=== PATIENT | female | born 1995 | race Asian ===

== ENCOUNTER 2017-03-09 04:14 | Emergency (ER) | payer BC ==
[2017-03-09 04:28] VITALS: BP 135/108
[2017-03-09] MEDS ORDERED: Sodium Chloride 0.9% 10 ML Syringe FLUSH PRN ×2 (05:03→06:40)
[2017-03-09] MEDS ORDERED: Ondansetron 4 MG/2 ML SDV IVPUSH ONE (05:03)
[2017-03-09] MEDS ORDERED: HYDROmorphone 1 MG/ML Syringe IVPUSH ONE (05:03)
[2017-03-09] MEDS ORDERED: LORazepam 2 MG/ML MDV IVPUSH ONE (05:14)
[2017-03-09] MEDS ORDERED: Sodium Chloride 0.9% 1,000 ML IV SCH (05:15)
[2017-03-09] MEDS ORDERED: Iopamidol 612 MG/ML 100 ML Bottle IV PRN (06:40)
--- NOTE | 2017-03-09 06:43 | EDM.PDOC ---
ED HPI GENERAL MEDICAL PROBLEM - General Chief Complaint: Gastrointestinal Problem Stated Complaint: VOMITING BLOOD Time Seen by Provider: 03/09/17 04:55 Source of Information: Reports: Patient History Limitations: Reports: No Limitations - History of Present Illness INITIAL COMMENTS - FREE TEXT/NARRATIVE: This lady complains of nausea and vomiting. It began about 10 PM last night. After she vomited several times she noticed some blood in it may be about 1 teaspoon. This has happened before. Last night she drank 2 shots of vodka is wondering if that might have something to do with it. The only time she had vomiting before was after ethanol poisoning. She's not really complaining of abdominal pain just the persistent nausea. She denies any fever or chills. She mentioned she does have a history of irritable bowel syndrome Middle Abdomen Pain Score (Numeric/FACES): 8 - Related Data Allergies Allergy/AdvReac Type Severity Reaction Status Date / Time No Known Allergies Allergy Verified 03/09/17 04:39 Home Meds: Home Meds NK [No Known Home Meds] 03/09/17 [History] Past Medical History Gastrointestinal History: Reports: Irritable Bowel Syndrome - Past Surgical History HEENT Surgical History: Reports: Eye Surgery Social & Family History - Tobacco Use Smoking Status *Q: Current Every Day Smoker Years of Tobacco use: 9 Packs/Tins Daily: 0.5 - Caffeine Use Caffeine Use: Reports: Coffee, Tea - Recreational Drug Use Recreational Drug Use: Yes Drug Use in Last 12 Months: Yes Recreational Drug Type: Reports: Marijuana/Hashish Recreational Drug Use Frequency: Rarely ED ROS GENERAL - Review of Systems Review Of Systems: See Below Constitutional: Reports: No Symptoms HEENT: Reports: No Symptoms Respiratory: Reports: No Symptoms Cardiovascular: Reports: No Symptoms Endocrine: Reports: No Symptoms GI/Abdominal: Reports: Vomiting. Denies: Abdominal Pain : Reports: No Symptoms Musculoskeletal: Reports: No Symptoms Skin: Reports: No Symptoms ED EXAM, GI/ABD - Physical Exam Exam: See Below Exam Limited By: No Limitations (No) General Appearance: Alert, Moderate Distress, Obese Eyes: Bilateral: Normal Appearance Throat/Mouth: Normal Inspection Neck: Normal Inspection Respiratory/Chest: Lungs Clear Cardiovascular: Regular Rate, Rhythm, No Murmur GI/Abdominal Exam: Tender (Moderate to severe tenderness mostly in the left lower quadrant. Less severe tenderness in all other quadrants), Abnormal Bowel Sounds (Hypoactive) Back Exam: Normal Inspection Extremities: Normal Inspection Neurological: Alert, Oriented Psychiatric: Normal Affect Skin Exam: Warm, Dry Course - Vital Signs Last Recorded V/S: Last Vital Signs Temp 36.9 C 03/09/17 04:25 Pulse 88 03/09/17 04:25 Resp 20 03/09/17 04:25 BP 135/108 H 03/09/17 04:25 Pulse Ox 98 03/09/17 04:25 - Orders/Labs/Meds Orders: Active Orders 24 hr Category Date Time Status Abdomen Pelvis w Cont [CT] Stat Exams 03/09/17 06:34 Taken Iopamidol [Isovue-300 (61%)] Med 03/09/17 06:40 Active 100 ml IV . DIRECTED PRN Sodium Chloride 0.9% [Normal Saline] 1,000 ml Med 03/09/17 05:15 Active IV ASDIRECTED Sodium Chloride 0.9% [Normal Saline] 71 ml Med 03/09/17 06:45 Active IV ASDIRECTED Sodium Chloride 0.9% [Saline Flush] Med 03/09/17 05:03 Active 10 ml FLUSH ASDIRECTED PRN Sodium Chloride 0.9% [Saline Flush] Med 03/09/17 06:40 Active 10 ml FLUSH ONETIME PRN Saline Lock Insert [OM.PC] Urgent Oth 03/09/17 05:02 Ordered Medication Orders Sodium Chloride (Normal Saline) 1,000 mls @ 999 mls/hr IV ASDIRECTED [facility] Last Admin: 03/09/17 05:14 Dose: 999 mls/hr Sodium Chloride (Normal Saline) 71 mls @ 3 mls/sec IV ASDIRECTED [facility] Last Admin: 03/09/17 06:49 Dose: 3 mls/sec Iopamidol (Isovue-300 (61%)) 100 ml IV . DIRECTED PRN PRN Reason: RADIOLOGY EXAM Stop: 03/10/17 06:41 Last Admin: 03/09/17 06:49 Dose: 100 ml Sodium Chloride (Saline Flush) 10 ml FLUSH ASDIRECTED PRN PRN Reason: Keep Vein Open Last Admin: 03/09/17 05:14 Dose: 10 ml Sodium Chloride (Saline Flush) 10 ml FLUSH ONETIME PRN PRN Reason: per radiology protocol Last Admin: 03/09/17 06:49 Dose: 10 ml Labs: Laboratory Tests 03/09/17 03/09/17 03/09/17 Range/Units 05:21 05:21 05:21 WBC 14.3 H (4.5-11.0) K/uL RBC 5.21 (3.30-5.50) M/uL Hgb 15.2 H (12.0-15.0) g/dL Hct 43.4 (36.0-48.0) % MCV 83 (80-98) fL MCH 29 (27-31) pg MCHC 35 (32-36) % Plt Count 413 H (150-400) K/uL Neut % (Auto) 82 H (36-66) % Lymph % (Auto) 12 L (24-44) % [place] % (Auto) 5 (2-6) % Eos % (Auto) 1 L (2-4) % Baso % (Auto) 1 (0-1) % Sodium 140 (140-148) mmol/L Potassium 3.8 (3.6-5.2) mmol/L Chloride 102 (100-108) mmol/L Carbon Dioxide 27 (21-32) mmol/L Anion Gap 11.3 (5.0-14.0) mmol/L BUN 8 (7-18) mg/dL Creatinine 0.8 (0.6-1.0) mg/dL Est Cr Clr Drug Dosing 102.39 mL/min Estimated GFR (MDRD) > 60 (>60) Glucose 100 (74-106) mg/dL Calcium 9.3 (8.5-10.1) mg/dL Total Bilirubin 0.7 (0.2-1.0) mg/dL AST 23 (15-37) U/L ALT 40 (12-78) U/L Alkaline Phosphatase 54 (46-116) U/L Total Protein 9.0 H (6.4-8.2) g/dL Albumin 4.5 (3.4-5.0) g/dL Globulin 4.5 H (2.3-3.5) g/dL Albumin/Globulin Ratio 1.0 L (1.2-2.2) Urine Color Urine Appearance Urine pH (4.5-8.0) Ur Specific [place] (1.008-1.030) Urine Protein (NEGATIVE) mg/dL Urine Glucose (UA) (NEGATIVE) mg/dL Urine Ketones (NEGATIVE) mg/dL Urine Occult Blood (NEGATIVE) Urine Nitrite (NEGATIVE) Urine Bilirubin (NEGATIVE) Urine Urobilinogen (NORMAL) mg/dL Ur Leukocyte Esterase (NEGATIVE) Urine RBC (0-5) Urine WBC (0-5) Ur Epithelial Cells Amorphous Sediment Urine Bacteria Urine Mucus Urine HCG, Qual Negative 03/09/17 Range/Units 05:21 WBC (4.5-11.0) K/uL RBC (3.30-5.50) M/uL Hgb (12.0-15.0) g/dL Hct (36.0-48.0) % MCV (80-98) fL MCH (27-31) pg MCHC (32-36) % Plt Count (150-400) K/uL Neut % (Auto) (36-66) % Lymph % (Auto) (24-44) % Ware % (Auto) (2-6) % Eos % (Auto) (2-4) % Baso % (Auto) (0-1) % Sodium (140-148) mmol/L Potassium (3.6-5.2) mmol/L Chloride (100-108) mmol/L Carbon Dioxide (21-32) mmol/L Anion Gap (5.0-14.0) mmol/L BUN (7-18) mg/dL Creatinine (0.6-1.0) mg/dL Est Cr Clr Drug Dosing mL/min Estimated GFR (MDRD) (>60) Glucose (74-106) mg/dL Calcium (8.5-10.1) mg/dL Total Bilirubin (0.2-1.0) mg/dL AST (15-37) U/L ALT (12-78) U/L Alkaline Phosphatase (46-116) U/L Total Protein (6.4-8.2) g/dL Albumin (3.4-5.0) g/dL Globulin (2.3-3.5) g/dL Albumin/Globulin Ratio (1.2-2.2) Urine Color Yellow Urine Appearance Clear Urine pH 9.0 H (4.5-8.0) Ur Specific [place] 1.015 (1.008-1.030) Urine Protein Negative (NEGATIVE) mg/dL Urine Glucose (UA) Normal (NEGATIVE) mg/dL Urine Ketones 15 H (NEGATIVE) mg/dL Urine Occult Blood Negative (NEGATIVE) Urine Nitrite Negative (NEGATIVE) Urine Bilirubin Negative (NEGATIVE) Urine Urobilinogen Normal (NORMAL) mg/dL Ur Leukocyte Esterase Negative (NEGATIVE) Urine RBC 0-5 (0-5) Urine WBC 0-5 (0-5) Ur Epithelial Cells Few Amorphous Sediment Not seen Urine Bacteria Not seen Urine Mucus Not seen Urine HCG, Qual Meds: Medications Generic Name Dose Route Start Last Admin Trade Name Ailyn PRN Reason Stop Dose Admin Sodium Chloride 1,000 mls @ 999 mls/hr 03/09/17 05:15 03/09/17 05:14 Normal Saline IV 999 mls/hr ASDIRECTED [facility] Administration Sodium Chloride 71 mls @ 3 mls/sec 03/09/17 06:45 03/09/17 06:49 Normal Saline IV 3 mls/sec ASDIRECTED [facility] Administration Iopamidol 100 ml 03/09/17 06:40 03/09/17 06:49 Isovue-300 (61%) IV 03/10/17 06:41 100 ml . DIRECTED PRN Administration RADIOLOGY EXAM Sodium Chloride 10 ml 03/09/17 05:03 03/09/17 05:14 Saline Flush FLUSH 10 ml ASDIRECTED PRN Administration Keep Vein Open Sodium Chloride 10 ml 03/09/17 06:40 03/09/17 06:49 Saline Flush FLUSH 10 ml ONETIME PRN Administration per radiology protocol Discontinued Medications Generic Name Dose Route Start Last Admin Trade Name Ailyn PRN Reason Stop Dose Admin Hydromorphone HCl 1 mg 03/09/17 05:03 03/09/17 05:44 Dilaudid IVPUSH 03/09/17 05:04 Not Given ONETIME ONE Lorazepam 1 mg 03/09/17 05:14 03/09/17 05:22 Ativan IVPUSH 03/09/17 05:15 1 mg ONETIME ONE Administration Ondansetron HCl 4 mg 03/09/17 05:03 03/09/17 05:12 Zofran IVPUSH 03/09/17 05:04 4 mg ONETIME ONE Administration - Re-Assessments/Exams Free Text/Narrative Re-Assessment/Exam: 03/09/17 06:40 This patient received Zofran 4 mg IV and normal saline 1 L IV. She declined any medications for pain but requested something for anxiety. She received Ativan 1 mg. After 1 L of IV normal saline and 4 mg Zofran the patient's nausea is gone. She was reexamined then and still has markedly tenderness in the left lower quadrant. An abdominal CT was ordered 03/09/17 06:43 03/09/17 07:33abdominal CT showed no evidence of any acute intra-abdominal process. Departure - Departure Time of Disposition: 07:34 Disposition: Home, Self-Care 01 Condition: Fair Clinical Impression: Abdominal pain - Discharge Information Forms: ED Department Discharge Additional Instructions: The CT scan was negative. You may be suffering from gastroenteritis probably of viral stomach flu. If you have more nausea try using the Zofran or ondansetron. Displaced one or 2 tablets under your tongue and let them dissolve. Don't try eating any solid foods for the next 24 hours just a clear liquid diet. If you feel like you're getting worse than it or see your Dr. or return to the ER. - My Orders Last 24 Hours: My Active Orders 03/09/17 05:02 Saline Lock Insert [OM.PC] Urgent 03/09/17 05:03 Sodium Chloride 0.9% [Saline Flush] 10 ml FLUSH ASDIRECTED PRN 03/09/17 05:15 Sodium Chloride 0.9% [Normal Saline] 1,000 ml IV ASDIRECTED 03/09/17 06:34 Abdomen Pelvis w Cont [CT] Stat 03/09/17 06:40 Iopamidol [Isovue-300 (61%)] 100 ml IV . DIRECTED PRN Sodium Chloride 0.9% [Saline Flush] 10 ml FLUSH ONETIME PRN 03/09/17 06:45 Sodium Chloride 0.9% [Normal Saline] 71 ml IV ASDIRECTED - Assessment/Plan Last 24 Hours: My Active Orders 03/09/17 05:02 Saline Lock Insert [OM.PC] Urgent 03/09/17 05:03 Sodium Chloride 0.9% [Saline Flush] 10 ml FLUSH ASDIRECTED PRN 03/09/17 05:15 Sodium Chloride 0.9% [Normal Saline] 1,000 ml IV ASDIRECTED 03/09/17 06:34 Abdomen Pelvis w Cont [CT] Stat 03/09/17 06:40 Iopamidol [Isovue-300 (61%)] 100 ml IV . DIRECTED PRN Sodium Chloride 0.9% [Saline Flush] 10 ml FLUSH ONETIME PRN 03/09/17 06:45 Sodium Chloride 0.9% [Normal Saline] 71 ml IV ASDIRECTED
[2017-03-09] MEDS ORDERED: Sodium Chloride 0.9% 71 ML IV SCH (06:45)
== END 2017-03-09 07:40 | disposition home or self-care (01) ==
LOC: JP.ED 04:14
DX: R10.9 Unspecified abdominal pain (principal); R11.2 Nausea with vomiting, unspecified; F17.210 Nicotine dependence, cigarettes, uncomplicated; Z98.890 Other specified postprocedural states
CPT/HCPCS: 36415; 74177; 80053; 81001; 81025; 85025; 96374; 96375; 99284; J2060; J2405; J7030; J7040; J7050; Q9967

== ENCOUNTER 2017-03-23 07:05 | Day surgery (SDC) | payer BC ==
[2017-03-23] MEDS ORDERED: Midazolam 1 MG/ML 2 ML SDV ONE (07:24)
[2017-03-23] MEDS ORDERED: fentaNYL 100 MCG/2 ML SDV ONE (07:24)
[2017-03-23] MEDS ORDERED: Propofol 200 MG/20 ML SDV ONE (07:24)
[2017-03-23] MEDS ORDERED: Sodium Chloride 0.9% 1,000 ML IV SCH (07:45)
[2017-03-23 10:22] VITALS: BP 118/73
--- NOTE | 2017-03-23 14:58 | OR ---
DATE OF PROCEDURE: 03/23/2017 PROCEDURE: Esophagogastroduodenoscopy. PREOPERATIVE DIAGNOSIS: Gastrointestinal bleeding. POSTOPERATIVE DIAGNOSIS: Gastrointestinal bleeding. FINDINGS: Inflammation of the GE junction consistent with reflux disease (biopsied using cold biopsy forceps x6). COMPLICATIONS: None. 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 ANESTHESIA: MAC. RISKS: Risks, benefits, alternatives, limitations including, but not limited to infection, bleeding, and perforation. The patient understands these risks and wished to proceed. PROCEDURE IN DETAIL: The patient was placed in left lateral decubitus position. EGD scope was introduced and advanced atraumatically to the second part of the duodenum. No evidence of duodenitis. On retroflex, there was no hiatal hernia. No gastritis. No ulceration. GE junction was biopsied x6 using cold biopsy forceps. The patient showed minimal inflammation consistent with reflux disease. The esophagus was normal. The patient tolerated the procedure well. Steve Kaye MD /[id number]
== END 2017-03-23 10:38 | disposition home or self-care (01) ==
LOC: JP.SDS 07:05
PROVIDERS: ATTEND Surgery
DX: K21.0 Gastro-esophageal reflux disease with esophagitis (principal); F32.9 Major depressive disorder, single episode, unspecified; E66.9 Obesity, unspecified; F17.210 Nicotine dependence, cigarettes, uncomplicated
CPT/HCPCS: 43239; J2250; J2704; J3010; J7040; 88305

== ENCOUNTER 2017-07-10 21:28 | Emergency (ER) | payer BC ==
[2017-07-10] MEDS ORDERED: LORazepam 2 MG/ML MDV IVPUSH ONE (22:07)
[2017-07-10] MEDS ORDERED: Sodium Chloride 0.9% 10 ML Syringe FLUSH PRN (22:07)
[2017-07-10] MEDS ORDERED: Ketorolac 30 MG/ML SDV IVPUSH ONE (22:07)
[2017-07-10] MEDS ORDERED: Ondansetron 4 MG/2 ML SDV IVPUSH ONE (22:08)
--- NOTE | 2017-07-10 22:14 | EDM.PDOC ---
ED HPI GENERAL MEDICAL PROBLEM - General Chief Complaint: Abdominal Pain Stated Complaint: ABDOMINAL PAIN Time Seen by Provider: 07/10/17 21:52 Source of Information: Reports: Patient, Old Records, RN Notes Reviewed History Limitations: Reports: No Limitations - History of Present Illness INITIAL COMMENTS - FREE TEXT/NARRATIVE: 53 Accompanied by Chief complaint Abdominal pain History of present illness 22-year-old female with history of anxiety and bipolar disorder Also history of dyspepsia/gastritis/upper GI bleed in February of this year on omeprazole. Also gets frequent headaches for which she takes ibuprofen as needed 3 PM today gradual onset of generalized abdominal pain with radiation to the sides and back, waxing and waning. Associated with nausea but no emesis. She tried to induce vomiting but this also was unsuccessful. No urinary symptoms On arrival she had 2 episodes of watery diarrhea within a few minutes, no change in her pain. Feels worse laying down. Did it assemblage 11 AM and at 7 PM, eating made the pain worse. She became quite anxious, states that she has tingling in her face in her fingertips and feet, states it's probably because she's hyperventilating, states she is a very anxious person. [place] chilled at home was unaware of any fever. No ear nose and throat symptoms No headache although she feels lightheaded. 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 No abdominal surgery previously Never Abdominal Pain Score (Numeric/FACES): 10 - Related Data Allergies Allergy/AdvReac Type Severity Reaction Status Date / Time No Known Allergies Allergy Verified 03/23/17 07:30 Home Meds: Home Meds Cetirizine [ZyrTEC] 10 mg PO DAILY 03/21/17 [History] Loratadine [Claritin] 10 mg PO DAILY PRN 03/21/17 [History] Omeprazole 20 mg PO DAILY 03/21/17 [History] Ibuprofen 400 mg PO Q8H PRN 03/23/17 [History] Ondansetron [Ondansetron ODT] 4 mg PO Q6H PRN #6 tab.rapdis 07/11/17 [Rx] Past Medical History Cardiovascular History: Reports: None Respiratory History: Reports: None Gastrointestinal History: Reports: GERD, Irritable Bowel Syndrome Genitourinary History: Reports: None 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 Musculoskeletal History: Reports: None Neurological History: Reports: None Psychiatric History: Reports: Anxiety, Bipolar, PTSD Endocrine/Metabolic History: Reports: None Hematologic History: Reports: None Immunologic History: Reports: None Oncologic (Cancer) History: Reports: None Dermatologic History: Reports: None - Infectious Disease History Infectious Disease History: Reports: None - Past Surgical History Head Surgeries/Procedures: Reports: None HEENT Surgical History: Reports: Eye Surgery, LASIK Cardiovascular Surgical History: Reports: None GI Surgical History: Reports: None Social & Family History - Family History Family Medical History: Noncontributory Cardiac: Reports: Prior Cardiac Arrest - Tobacco Use Smoking Status *Q: Former Smoker Years of Tobacco use: 10 Packs/Tins Daily: 1 Used Tobacco, but Quit: No Second Hand Smoke Exposure: No - Caffeine Use Caffeine Use: Reports: Coffee - Recreational Drug Use Recreational Drug Use: Yes Drug Use in Last 12 Months: Yes Recreational Drug Type: Reports: Marijuana/Hashish Recreational Drug Use Frequency: Daily ED ROS GENERAL - Review of Systems Review Of Systems: See Below Constitutional: Reports: Chills, Decreased Appetite HEENT: Reports: No Symptoms Respiratory: Reports: Shortness of Breath Cardiovascular: Reports: Lightheadedness. Denies: Chest Pain, Palpitations GI/Abdominal: Reports: Abdominal Pain, Diarrhea, Decreased Appetite, Nausea. Denies: Constipation, Stool Incontinence, Vomiting : Reports: No Symptoms Musculoskeletal: Reports: No Symptoms Skin: Reports: No Symptoms Neurological: Reports: Numbness (See history of present illness), Tremors, Difficulty Walking. Denies: Headache, Syncope, Change in Speech, Gait Disturbance Psychiatric: Reports: Anxiety. Denies: Confusion Immunologic: Reports: No Symptoms ED EXAM, GI/ABD - Physical Exam Exam: See Below Exam Limited By: No Limitations General Appearance: Alert, Anxious, Moderate Distress, Other (TearfulLow-grade fever 100.8 and moderate tachycardia rate 112, She is also hyperventilating rate 24, color normal) Eyes: Bilateral: Normal Appearance Ears: Normal External Exam, Hearing Grossly Normal Nose: Normal Inspection Throat/Mouth: Normal Oropharynx, Normal Voice, Other (Dry tongue) Head: Atraumatic Neck: Normal Inspection, Supple, Non-Tender Respiratory/Chest: No Respiratory Distress, Lungs Clear, Normal Breath Sounds, No Accessory Muscle Use Cardiovascular: Regular Rate, Rhythm, No Murmur, Tachycardia GI/Abdominal Exam: Normal Bowel Sounds, Soft, No Distention, Tender (Diffuse with no localization). No: Guarding, Rigid, Rebound Back Exam: Normal Inspection. No: CVA Tenderness (R), CVA Tenderness (L) Extremities: Normal Inspection, Non-Tender Neurological: Alert, No Motor/Sensory Deficits Psychiatric: Anxious, Tearful Skin Exam: Warm, Dry, Intact, Normal Color, No Rash Course - Vital Signs Last Recorded V/S: Last Vital Signs Temp 38.4 C H 07/10/17 21:36 Pulse 98 07/10/17 22:54 Resp 16 07/10/17 22:54 BP 140/88 07/10/17 22:54 Pulse Ox 97 07/10/17 22:54 - Orders/Labs/Meds Orders: Active Orders 24 hr Category Date Time Status Peripheral IV Care [RC] . DIRECTED Care 07/10/17 22:07 Active Abdomen Pelvis w Cont [CT] Stat Exams 07/10/17 23:13 Taken Sodium Chloride 0.9% [Normal Saline] 1,000 ml Med 07/10/17 22:15 Active IV ASDIRECTED Sodium Chloride 0.9% [Normal Saline] 100 ml Med 07/10/17 23:30 Active IV ASDIRECTED Sodium Chloride 0.9% [Saline Flush] Med 07/10/17 22:07 Active 10 ml FLUSH ASDIRECTED PRN Peripheral IV Insertion Adult [OM.PC] Routine Oth 07/10/17 22:06 Ordered Medication Orders Sodium Chloride (Normal Saline) 1,000 mls @ 250 mls/hr IV ASDIRECTED [facility] Last Admin: 07/10/17 22:53 Dose: 250 mls/hr Sodium Chloride (Normal Saline) 100 mls @ 3 mls/sec IV ASDIRECTED [facility] Last Admin: 07/10/17 23:41 Dose: 3 mls/sec Sodium Chloride (Saline Flush) 10 ml FLUSH ASDIRECTED PRN PRN Reason: Keep Vein Open Last Admin: 07/10/17 22:51 Dose: 10 ml Labs: Laboratory Tests 07/10/17 07/10/17 07/10/17 Range/Units 22:18 22:18 22:27 WBC 15.9 H (4.5-11.0) K/uL RBC 4.76 (3.30-5.50) M/uL Hgb 13.3 (12.0-15.0) g/dL Hct 39.5 (36.0-48.0) % MCV 83 (80-98) fL MCH 28 (27-31) pg MCHC 34 (32-36) % Plt Count 302 (150-400) K/uL Sodium 137 L (140-148) mmol/L Potassium 3.3 L (3.6-5.2) mmol/L Chloride 102 (100-108) mmol/L Carbon Dioxide 22 (21-32) mmol/L Anion Gap 16.3 H (5.0-14.0) mmol/L BUN 9 (7-18) mg/dL Creatinine 0.7 (0.6-1.0) mg/dL Est Cr Clr Drug Dosing 116.01 mL/min Estimated GFR (MDRD) > 60 (>60) Glucose 123 H (74-106) mg/dL Calcium 9.1 (8.5-10.1) mg/dL Total Bilirubin 0.6 (0.2-1.0) mg/dL AST 16 (15-37) U/L ALT 34 (12-78) U/L Alkaline Phosphatase 53 (46-116) U/L Total Protein 7.4 (6.4-8.2) g/dL Albumin 3.8 (3.4-5.0) g/dL Globulin 3.6 H (2.3-3.5) g/dL Albumin/Globulin Ratio 1.1 L (1.2-2.2) Lipase 123 (73-393) U/L Urine Color Yellow Urine Appearance Clear Urine pH 9.0 H (4.5-8.0) Ur Specific [place] 1.015 (1.008-1.030) Urine Protein Negative (NEGATIVE) mg/dL Urine Glucose (UA) Normal (NEGATIVE) mg/dL Urine Ketones 15 H (NEGATIVE) mg/dL Urine Occult Blood Negative (NEGATIVE) Urine Nitrite Negative (NEGATIVE) Urine Bilirubin Negative (NEGATIVE) Urine Urobilinogen Normal (NORMAL) mg/dL Ur Leukocyte Esterase Negative (NEGATIVE) Urine RBC 0-5 (0-5) Urine WBC 0-5 (0-5) Ur Epithelial Cells Moderate Amorphous Sediment Few Urine Bacteria Moderate Urine Mucus Not seen Urine HCG, Qual 07/10/17 Range/Units 22:27 WBC (4.5-11.0) K/uL RBC (3.30-5.50) M/uL Hgb (12.0-15.0) g/dL Hct (36.0-48.0) % MCV (80-98) fL MCH (27-31) pg MCHC (32-36) % Plt Count (150-400) K/uL Sodium (140-148) mmol/L Potassium (3.6-5.2) mmol/L Chloride (100-108) mmol/L Carbon Dioxide (21-32) mmol/L Anion Gap (5.0-14.0) mmol/L BUN (7-18) mg/dL Creatinine (0.6-1.0) mg/dL Est Cr Clr Drug Dosing mL/min Estimated GFR (MDRD) (>60) Glucose (74-106) mg/dL Calcium (8.5-10.1) mg/dL Total Bilirubin (0.2-1.0) mg/dL AST (15-37) U/L ALT (12-78) U/L Alkaline Phosphatase (46-116) U/L Total Protein (6.4-8.2) g/dL Albumin (3.4-5.0) g/dL Globulin (2.3-3.5) g/dL Albumin/Globulin Ratio (1.2-2.2) Lipase (73-393) U/L Urine Color Urine Appearance Urine pH (4.5-8.0) Ur Specific [place] (1.008-1.030) Urine Protein (NEGATIVE) mg/dL Urine Glucose (UA) (NEGATIVE) mg/dL Urine Ketones (NEGATIVE) mg/dL Urine Occult Blood (NEGATIVE) Urine Nitrite (NEGATIVE) Urine Bilirubin (NEGATIVE) Urine Urobilinogen (NORMAL) mg/dL Ur Leukocyte Esterase (NEGATIVE) Urine RBC (0-5) Urine WBC (0-5) Ur Epithelial Cells Amorphous Sediment Urine Bacteria Urine Mucus Urine HCG, Qual Negative Meds: Medications Generic Name Dose Route Start Last Admin Trade Name Freq PRN Reason Stop Dose Admin Sodium Chloride 1,000 mls @ 250 mls/hr 07/10/17 22:15 07/10/17 22:53 Normal Saline IV 250 mls/hr ASDIRECTED ROSAMARIA Administration Sodium Chloride 100 mls @ 3 mls/sec 07/10/17 23:30 07/10/17 23:41 Normal Saline IV 3 mls/sec ASDIRECTED ROSAM[facility]IA Administration Sodium Chloride 10 ml 07/10/17 22:07 07/10/17 22:51 Saline Flush FLUSH 10 ml ASDIRECTED PRN Administration Keep Vein Open Discontinued Medications Generic Name Dose Route Start Last Admin Trade Name Ailyn PRN Reason Stop Dose Admin Iopamidol 124 ml 07/10/17 23:30 07/10/17 23:41 Isovue-300 (61%) IV 150 ml . DIRECTED ROSAMARIA Administration Ketorolac Tromethamine 15 mg 07/10/17 22:07 07/10/17 22:37 Toradol IVPUSH 07/10/17 22:08 15 mg ONETIME ONE Administration Lorazepam 1 mg 07/10/17 22:07 07/10/17 22:41 Ativan IVPUSH 07/10/17 22:08 1 mg ONETIME ONE Administration Ondansetron HCl 4 mg 07/10/17 22:08 07/10/17 22:39 Zofran IVPUSH 07/10/17 22:09 4 mg ONETIME ONE Administration - Re-Assessments/Exams Free Text/Narrative Re-Assessment/Exam: 07/10/17 22:16 22-year-old female with generalized abdominal pain gradual onset 3 PM associated with low-grade fever and diarrhea, and anxiety including hyperventilation and paresthesias. Differential diagnosis includes gastritis, early appendicitis, cholecystitis among others Labs ordered Intravenous saline, ondansetron 4 mg, ketorolac 15 mg and lorazepam 1 mg. 07/10/17 23:14 23.10 some improvement in her discomfort, feels more numb and feel sedated, deftly more relaxed. Abdominal exam shows diffuse tenderness possibly focal tenderness in the right lower quadrant CT scan abdomen pelvis with contrast recommended. Labs show elevated white count 15.9 glucose 123 low sodium at 137 and potassium of 3.3 anion gap increased 16.3 Hepatic profile lipase urinalysis are normal and urine test negative 07/11/17 00:38 Improve with the above treatment CT scan shows inflammation of the terminal ileum and distal jejunum consistent with gastroenteritis but could also be early inflammatory bowel disease. However her history is more consistent with infection It's important that she get rechecked if she doesn't improve within a few days Note for missing work tomorrow Departure - Departure Time of Disposition: 00:39 Disposition: Home, Self-Care 01 Condition: Good Clinical Impression: Gastroenteritis - Discharge Information Instructions: Viral Gastroenteritis, Adult, [id number] Referrals: Shira Hart RN [Primary Care Provider] - Forms: ED Department Discharge, ED Return to Work/School Form Additional Instructions: rest at home until your improved at least 24 hours. Fluids frequently Ondansetron has been prescribed for nausea as needed Get rechecked if you develop a very high fever, have recurrent vomiting, are unable to manage at home, or if your symptoms are lasting more than 5-6 days - My Orders Last 24 Hours: My Active Orders 07/10/17 22:06 Peripheral IV Insertion Adult [OM.PC] Routine 07/10/17 22:07 Peripheral IV Care [RC] . DIRECTED Sodium Chloride 0.9% [Saline Flush] 10 ml FLUSH ASDIRECTED PRN 07/10/17 22:15 Sodium Chloride 0.9% [Normal Saline] 1,000 ml IV ASDIRECTED 07/10/17 23:13 Abdomen Pelvis w Cont [CT] Stat 07/10/17 23:30 Sodium Chloride 0.9% [Normal Saline] 100 ml IV ASDIRECTED - Assessment/Plan Last 24 Hours: My Active Orders 07/10/17 22:06 Peripheral IV Insertion Adult [OM.PC] Routine 07/10/17 22:07 Peripheral IV Care [RC] . DIRECTED Sodium Chloride 0.9% [Saline Flush] 10 ml FLUSH ASDIRECTED PRN 07/10/17 22:15 Sodium Chloride 0.9% [Normal Saline] 1,000 ml IV ASDIRECTED 07/10/17 23:13 Abdomen Pelvis w Cont [CT] Stat 07/10/17 23:30 Sodium Chloride 0.9% [Normal Saline] 100 ml IV ASDIRECTED
[2017-07-10] MEDS ORDERED: Sodium Chloride 0.9% 1,000 ML IV SCH (22:15)
[2017-07-10 22:54] VITALS: BP 140/88
[2017-07-10] MEDS ORDERED: Haloperidol Lactate 5 MG/ML SDV IM ONE (23:26)
[2017-07-10] MEDS ORDERED: diphenhydrAMINE 50 MG/ML SDV IM ONE (23:26)
[2017-07-10] MEDS ORDERED: Midazolam 1 MG/ML 5 ML SDV IM ONE (23:27)
[2017-07-10] MEDS ORDERED: Iopamidol 612 MG/ML 150 ML Bottle IV SCH (23:30)
[2017-07-10] MEDS ORDERED: Sodium Chloride 0.9% 100 ML IV SCH (23:30)
== END 2017-07-11 01:18 | disposition home or self-care (01) ==
LOC: JP.ED 21:28
DX: K52.9 Noninfective gastroenteritis and colitis, unspecified (principal); K21.9 Gastro-esophageal reflux disease without esophagitis; Z87.891 Personal history of nicotine dependence; Z79.899 Other long term (current) drug therapy
CPT/HCPCS: 36415; 74177; 80053; 81001; 81025; 83690; 85027; 96361; 96374; 96375; 99284; J1885; J2060; J2405; J7030; J7040; J7050

== ENCOUNTER 2017-08-15 20:31 | Emergency (ER) | payer SELFPAY ==
[2017-08-15 20:41] VITALS: BP 145/100
--- NOTE | 2017-08-15 21:38 | EDM.PDOC ---
ED HPI GENERAL MEDICAL PROBLEM - General Chief Complaint: ENT Problem Stated Complaint: POSITIVE STREP TODAY - UNABLE TO SWALLOW / PAINFUL Time Seen by Provider: 08/15/17 21:18 Source of Information: Reports: Patient, RN Notes Reviewed History Limitations: Reports: No Limitations - History of Present Illness INITIAL COMMENTS - FREE TEXT/NARRATIVE: Here with her Chief complaint Painful swallowing History of present illness 22-year-old female was seen in the clinic earlier today because she started developing a sore throat at work. 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 It felt like she was unable to swallow any saliva and was having great deal of difficulty eating or even taking her prescription, she was prescribed oral cephalexin, she did take 1 dose. She took oral naproxen for tablets and for pain has improved a bit she's not spitting up her saliva any longer. She reports that she had a very severe strep throat several years ago when she was in [place] developed tendinitis had to be hospitalized. No fever today, no cough, does feel a bit lightheaded - Related Data Allergies Allergy/AdvReac Type Severity Reaction Status Date / Time No Known Allergies Allergy Verified 03/23/17 07:30 Home Meds: Home Meds Cetirizine [ZyrTEC] 10 mg PO DAILY 03/21/17 [History] Loratadine [Claritin] 10 mg PO DAILY PRN 03/21/17 [History] Omeprazole 20 mg PO DAILY 03/21/17 [History] Ibuprofen 400 mg PO Q8H PRN 03/23/17 [History] Acetaminophen with Codeine [Acetaminophen-Codeine Elixir] 10 - 20 ml PO Q4H PRN #120 ml 08/15/17 [Rx] Amoxicillin 500 mg PO BID #150 ml 08/15/17 [Rx] Cephalexin [IJD: Cephalexin] 1,000 mg PO BID 08/15/17 [History] Past Medical History HEENT History: Reports: Allergic Rhinitis Cardiovascular History: Reports: None Respiratory History: Reports: None Gastrointestinal History: Reports: GERD, Irritable Bowel Syndrome Genitourinary History: Reports: None HOLISTIC PULSER History: Reports: None Musculoskeletal History: Reports: None Neurological History: Reports: None Psychiatric History: Reports: Anxiety, PTSD Endocrine/Metabolic History: Reports: None Hematologic History: Reports: None Immunologic History: Reports: None Oncologic (Cancer) History: Reports: None Dermatologic History: Reports: None - Infectious Disease History Infectious Disease History: Reports: None - Past Surgical History Head Surgeries/Procedures: Reports: None HEENT Surgical History: Reports: Eye Surgery, LASIK Cardiovascular Surgical History: Reports: None GI Surgical History: Reports: None Social & Family History - Family History Family Medical History: Noncontributory Cardiac: Reports: Prior Cardiac Arrest - Tobacco Use Smoking Status *Q: Current Every Day Smoker Years of Tobacco use: 10 Packs/Tins Daily: 0.1 Used Tobacco, but Quit: No Second Hand Smoke Exposure: No - Caffeine Use Caffeine Use: Reports: Coffee, Tea - Recreational Drug Use Recreational Drug Use: Yes Drug Use in Last 12 Months: Yes Recreational Drug Type: Reports: Marijuana/Hashish Recreational Drug Use Frequency: Daily ED ROS ENT - Review of Systems Review Of Systems: See Below Constitutional: Reports: Malaise, Decreased Appetite HEENT: Reports: Throat Pain, Throat Swelling. Denies: Ear Discharge, Ear Pain, Eye Discharge, Eye Pain, Nose Pain, Rhinitis Respiratory: Reports: No Symptoms Cardiovascular: Reports: No Symptoms GI/Abdominal: Reports: Nausea. Denies: Abdominal Pain, Diarrhea, Vomiting : Reports: No Symptoms Musculoskeletal: Reports: Muscle Pain Skin: Reports: No Symptoms Neurological: Reports: No Symptoms ED EXAM, ENT - Physical Exam Exam: See Below Exam Limited By: No Limitations General Appearance: Alert, Mild Distress, Other (Hoarse voice, mild elevation blood pressure, other vital signs normal, afebrile, no difficulties breathing and despite her horse and she is able to speak recently well) Eye Exam: Bilateral Eye: Normal Inspection Ears: Normal External Exam, Normal Canal, Hearing Grossly Normal, Normal TMs Nose: Normal Inspection, Normal Mucousa Mouth/Throat: Normal Lips, Normal Teeth, Pharyngeal Erythema, Tonsillar Erythema , Tonsillar Exudates (Mild mild, more on the left), Tonsillar Swelling, Other ( There is considerable improvement in her throat and there is no threat to the airway at present). No: Uvular Deviation, Uvular Edema Head: Atraumatic Neck: Supple, Lymphadenopathy (R), Lymphadenopathy (L) Respiratory/Chest: No Respiratory Distress, No Accessory Muscle Use Cardiovascular: Normal Peripheral Pulses, Regular Rate, Rhythm Neurological: Alert, Oriented, Normal Cognition Skin: Warm, Dry, Normal Color, No Rash Course - Vital Signs Last Recorded V/S: Last Vital Signs Temp 36.8 C 01/17/18 20:49 Pulse 79 08/15/17 20:49 Resp 16 08/15/17 20:49 BP 145/100 H 08/15/17 20:49 Pulse Ox 98 08/15/17 20:49 - Re-Assessments/Exams Free Text/Narrative Re-Assessment/Exam: 08/15/17 21:36 22-year-old female with streptococcal pharyngitis diagnosed today, having difficulty swallowing, however pain has improved and she is able to swallow her own saliva On examination there is modest peritonsillar swelling but no abscess and no muffled voice or threat of throat occlusion. Change to liquid medicine as below Departure - Departure Time of Disposition: 21:37 Disposition: Home, Self-Care 01 Condition: Good Clinical Impression: Acute streptococcal pharyngitis - Discharge Information Prescriptions: Acetaminophen with Codeine [Acetaminophen-Codeine Elixir] 10 - 20 ml PO Q4H PRN #120 ml PRN Reason: Moderate to severe pain Amoxicillin 500 mg PO BID #150 ml Instructions: Strep Throat, [id number] Referrals: Shira Hart, RN [Primary Care Provider] - Forms: ED Department Discharge Additional Instructions: Rest at home tomorrow Sip small amounts of fluids frequently Throat lozenges may also be used for discomfort Get rechecked if you have difficulty breathing, spitting up all saliva, high fevers, repeated vomiting.
== END 2017-08-15 21:47 | disposition home or self-care (01) ==
LOC: JP.ED 20:31
DX: J02.0 Streptococcal pharyngitis (principal); F17.210 Nicotine dependence, cigarettes, uncomplicated; K21.9 Gastro-esophageal reflux disease without esophagitis; Z79.899 Other long term (current) drug therapy
CPT/HCPCS: 99282; 99283

== ENCOUNTER 2017-11-02 10:12 | Emergency (ER) | payer SELFPAY ==
[2017-11-02 10:29] VITALS: BP 133/94
[2017-11-02] MEDS ORDERED: Morphine 2 MG/ML Syringe IM ONE ×2 (11:44→12:56)
[2017-11-02] MEDS ORDERED: Ketorolac 60 MG/2 ML SDV IM ONE ×2 (11:44→12:22)
--- NOTE | 2017-11-02 11:48 | EDM.PDOC ---
ED HPI GENERAL MEDICAL PROBLEM - General Chief Complaint: General Stated Complaint: FELL A FEW WKS AGO/ RT SIDE PAIN & DISCOLORATION Time Seen by Provider: 11/02/17 11:32 Source of Information: Reports: Patient, Old Records, RN Notes Reviewed History Limitations: Reports: No Limitations - History of Present Illness INITIAL COMMENTS - FREE TEXT/NARRATIVE: 22-year-old female presents to the emergency department today complaint of abdominal pain, she states she fell a couple weeks ago slipped on the ice foot injury as well as shoulder and chest wall pain x-rays revealed no fracture was in the clinic 3 days prior for further evaluation of rib pain x-ray at that time was unrevealing. She has been using Diflucan acute for pain control, however this morning sudden onset of abdominal pain predominately right upper quadrant no nausea no change in stool color pain is been ongoing for about one hour, she is most comfortable standing, pain is positional - Related Data Allergies Allergy/AdvReac Type Severity Reaction Status Date / Time Sulfa (Sulfonamide Allergy Other Verified 11/02/17 13:40 Antibiotics) Home Meds: Home Meds Cetirizine [ZyrTEC] 10 mg PO DAILY 03/21/17 [History] Omeprazole 20 mg PO DAILY 03/21/17 [History] Past Medical History HEENT History: Reports: Allergic Rhinitis Gastrointestinal History: Reports: GERD, Irritable Bowel Syndrome Psychiatric History: Reports: Anxiety, PTSD - Past Surgical History HEENT Surgical History: Reports: Eye Surgery, LASIK Cardiovascular Surgical History: Reports: None GI Surgical History: Reports: None Social & Family History - Family History Family Medical History: Noncontributory Cardiac: Reports: Prior Cardiac Arrest - Tobacco Use Smoking Status *Q: Unknown Ever Smoked Years of Tobacco use: 10 Packs/Tins Daily: 0.1 Used Tobacco, but Quit: No Second Hand Smoke Exposure: No - Caffeine Use Caffeine Use: Reports: Coffee, Tea - Recreational Drug Use Recreational Drug Use: Yes Drug Use in Last 12 Months: Yes Recreational Drug Type: Reports: Marijuana/Hashish Recreational Drug Use Frequency: Daily ED ROS GENERAL - Review of Systems Review Of Systems: See Below Constitutional: Reports: No Symptoms HEENT: Reports: No Symptoms Respiratory: Reports: No Symptoms Cardiovascular: Reports: No Symptoms GI/Abdominal: Reports: Abdominal Pain, Flatus. Denies: Nausea, Vomiting : Reports: No Symptoms Musculoskeletal: Reports: No Symptoms Skin: Reports: Bruising Neurological: Reports: No Symptoms ED EXAM, GENERAL - Physical Exam Exam: See Below Exam Limited By: No Limitations General Appearance: Alert, Mild Distress Eye Exam: Bilateral Eye: Normal Inspection Throat/Mouth: Normal Inspection, Normal Lips, Normal Teeth, Normal Gums, Normal Oropharynx, Normal Voice, No Airway Compromise Head: Atraumatic, Normocephalic Neck: Normal Inspection, Supple, Non-Tender, Full Range of Motion Respiratory/Chest: No Respiratory Distress, Lungs Clear, Normal Breath Sounds, No Accessory Muscle Use, Chest Non-Tender Cardiovascular: Regular Rate, Rhythm, No Murmur GI/Abdominal: Soft, No Distention, No Abnormal Bruit, No Mass, Tender (Right upper quadrant) Back Exam: Normal Inspection, Full Range of Motion. No: CVA Tenderness (R), CVA Tenderness (L), Muscle Spasm, Paraspinal Tenderness, Vertebral Tenderness Course - Vital Signs Last Recorded V/S: Last Vital Signs Temp 98.1 F 11/02/17 11:25 Pulse 71 11/02/17 11:25 Resp 18 11/02/17 11:25 BP 133/94 H 11/02/17 11:25 Pulse Ox 98 11/02/17 11:25 - Orders/Labs/Meds Orders: Active Orders 24 hr Category Date Time Status HCG QUALITATIVE,URINE [URCHEM] Routine Lab 11/02/17 11:43 Ordered UA W/MICROSCOPIC [URIN] Urgent Lab 11/02/17 11:43 Ordered Labs: Laboratory Tests 11/02/17 11/02/17 11/02/17 Range/Units 11:43 11:43 12:22 WBC 8.3 (4.5-11.0) K/uL RBC 4.81 (3.30-5.50) M/uL Hgb 13.5 (12.0-15.0) g/dL Hct 40.7 (36.0-48.0) % MCV 85 (80-98) fL MCH 28 (27-31) pg MCHC 33 (32-36) % Plt Count 348 (150-400) K/uL Neut % (Auto) 69 H (36-66) % Lymph % (Auto) 22 L (24-44) % [place] % (Auto) 7 H (2-6) % Eos % (Auto) 1 L (2-4) % Baso % (Auto) 1 (0-1) % Sodium (140-148) mmol/L Potassium (3.6-5.2) mmol/L Chloride (100-108) mmol/L Carbon Dioxide (21-32) mmol/L Anion Gap (5.0-14.0) mmol/L BUN (7-18) mg/dL Creatinine (0.6-1.0) mg/dL Est Cr Clr Drug Dosing mL/min Estimated GFR (MDRD) (>60) Glucose (74-106) mg/dL Lactic Acid (0.4-2.0) mmol/L Calcium (8.5-10.1) mg/dL Total Bilirubin (0.2-1.0) mg/dL AST (15-37) U/L ALT (12-78) U/L Alkaline Phosphatase (46-116) U/L Total Protein (6.4-8.2) g/dL Albumin (3.4-5.0) g/dL Globulin (2.3-3.5) g/dL Albumin/Globulin Ratio (1.2-2.2) Lipase (73-393) U/L Urine Color Yellow Urine Appearance Slightly cloudy Urine pH 6.5 (4.5-8.0) Ur Specific [place] 1.015 (1.008-1.030) Urine Protein Negative (NEGATIVE) mg/dL Urine Glucose (UA) Normal (NEGATIVE) mg/dL Urine Ketones Negative (NEGATIVE) mg/dL Urine Occult Blood Moderate (NEGATIVE) Urine Nitrite Negative (NEGATIVE) Urine Bilirubin Negative (NEGATIVE) Urine Urobilinogen Normal (NORMAL) mg/dL Ur Leukocyte Esterase Negative (NEGATIVE) Urine RBC 5-10 H (0-5) Urine WBC 0-5 (0-5) Ur Epithelial Cells Moderate Amorphous Sediment Not seen Urine Bacteria Moderate Urine Mucus Moderate Urine HCG, Qual Negative 11/02/17 11/02/17 Range/Units 12:22 12:22 WBC (4.5-11.0) K/uL RBC (3.30-5.50) M/uL Hgb (12.0-15.0) g/dL Hct (36.0-48.0) % MCV (80-98) fL MCH (27-31) pg MCHC (32-36) % Plt Count (150-400) K/uL Neut % (Auto) (36-66) % Lymph % (Auto) (24-44) % [place] % (Auto) (2-6) % Eos % (Auto) (2-4) % Baso % (Auto) (0-1) % Sodium 141 (140-148) mmol/L Potassium 4.0 (3.6-5.2) mmol/L Chloride 104 (100-108) mmol/L Carbon Dioxide 27 (21-32) mmol/L Anion Gap 10.2 (5.0-14.0) mmol/L BUN 14 D (7-18) mg/dL Creatinine 0.7 (0.6-1.0) mg/dL Est Cr Clr Drug Dosing 116.01 mL/min Estimated GFR (MDRD) > 60 (>60) Glucose 82 (74-106) mg/dL Lactic Acid 1.0 (0.4-2.0) mmol/L Calcium 8.8 (8.5-10.1) mg/dL Total Bilirubin 0.4 (0.2-1.0) mg/dL AST 20 (15-37) U/L ALT 44 (12-78) U/L Alkaline Phosphatase 62 (46-116) U/L Total Protein 7.8 (6.4-8.2) g/dL Albumin 4.3 (3.4-5.0) g/dL Globulin 3.5 (2.3-3.5) g/dL Albumin/Globulin Ratio 1.2 (1.2-2.2) Lipase 123 (73-393) U/L Urine Color Urine Appearance Urine pH (4.5-8.0) Ur Specific [place] (1.008-1.030) Urine Protein (NEGATIVE) mg/dL Urine Glucose (UA) (NEGATIVE) mg/dL Urine Ketones (NEGATIVE) mg/dL Urine Occult Blood (NEGATIVE) Urine Nitrite (NEGATIVE) Urine Bilirubin (NEGATIVE) Urine Urobilinogen (NORMAL) mg/dL Ur Leukocyte Esterase (NEGATIVE) Urine RBC (0-5) Urine WBC (0-5) Ur Epithelial Cells Amorphous Sediment Urine Bacteria Urine Mucus Urine HCG, Qual Meds: Medications Discontinued Medications Generic Name Dose Route Start Last Admin Trade Name Freq PRN Reason Stop Dose Admin Ketorolac Tromethamine 60 mg 11/02/17 11:44 Toradol IM 11/02/17 11:45 ONETIME ONE Ketorolac Tromethamine 60 mg 11/02/17 12:22 11/02/17 12:29 Toradol IM 11/02/17 12:23 60 mg ONETIME ONE Administration Morphine Sulfate 2 mg 11/02/17 11:44 Morphine IM 11/02/17 11:45 ONETIME ONE Morphine Sulfate 1 mg 11/02/17 12:56 11/02/17 13:33 Morphine IM 11/02/17 12:57 1 mg ONETIME ONE Administration Ondansetron HCl 4 mg 11/02/17 12:56 11/02/17 13:33 Zofran Odt PO 11/02/17 12:57 4 mg ONETIME ONE Administration Departure - Departure Time of Disposition: 14:30 Disposition: Home, Self-Care 01 Condition: Good Clinical Impression: RUQ abdominal pain - Discharge Information Referrals: Shira Hart RN [Primary Care Provider] - Forms: ED Department Discharge Additional Instructions: Try this method Gas-X for symptomatic relief of your abdominal pain, Please followup with your primary care provider in 3-5 days if not better, please call return to the emergency department with worsening of symptoms. - My Orders Last 24 Hours: My Active Orders 11/02/17 11:43 HCG QUALITATIVE,URINE [URCHEM] Routine UA W/MICROSCOPIC [URIN] Urgent - Assessment/Plan Last 24 Hours: My Active Orders 11/02/17 11:43 HCG QUALITATIVE,URINE [URCHEM] Routine UA W/MICROSCOPIC [URIN] Urgent Plan: Assessment Acuity = acute Site and laterality = right upper quadrant abdominal pain Etiology = unclear etiology Manifestations = none Location of injury = Home Lab values = CBC, CMP unremarkable urinalysis does show 5-10 rbc's consistent hematuria hCG was negative plain film abdomen does show large amount of gas and stool right upper quadrant. Plan Received no relief from the Toradol injection, was given low-dose morphine which provided significant relief, recommend follow-up with primary care 3-4 days for reevaluation, she declined further image studies at this time This note was dictated using [employer] voice recognition software please call with any questions on syntax or kelly.
[2017-11-02] MEDS ORDERED: Ondansetron 4 MG Tab.DIS PO ONE (12:56)
--- NOTE | 2017-11-02 14:05 | CR ---
Abdomen 1V Upright HISTORY: ruq pain FINDINGS: Bowel gas pattern is nonspecific. No obstruction or free air is identified. No soft tissue mass, orga nomegaly, or abnormal calcifications are seen. Bony structures are unremarkable. IMPRESSION: Nonspecific abdomen.
== END 2017-11-02 14:44 | disposition home or self-care (01) ==
LOC: JP.ED 10:12
DX: R10.11 Right upper quadrant pain (principal); K21.9 Gastro-esophageal reflux disease without esophagitis; Z88.2 Allergy status to sulfonamides; Z79.899 Other long term (current) drug therapy
CPT/HCPCS: 36415; 74018; 80053; 81001; 81025; 83605; 83690; 85025; 96372; 99284; A9270; J1885; J2270